=== PATIENT | male | born 1965 | race Caucasian/White ===

== ENCOUNTER 2024-05-13 08:40 | Day surgery (SDC) | payer OTHER ==
[~2024-05-13 08:40] MED LIST: Lactated Ringers 1,000 ML IV SCH
[2024-05-13] MEDS: Lactated Ringers 1,000 ML IV SCH (08:54)
[2024-05-13] MEDS ORDERED: Propofol 200 MG/20 ML SDV ONE (09:16)
[2024-05-13] MEDS ORDERED: fentaNYL 100 MCG/2 ML SDV ONE (09:16)
[2024-05-13] MEDS ORDERED: Sodium Chloride 0.9% 10 ML Syringe FLUSH PRN (09:24)
[2024-05-13 11:47] VITALS: BP 134/75; PULSE 68
== END 2024-05-13 12:01 | disposition home or self-care (01) ==
LOC: VM.SDS 08:40
PROVIDERS: ATTEND Student in an Organized Health Care Education/Training Program
DX: Z12.11 Encounter for screening for malignant neoplasm of colon (principal); D12.5 Benign neoplasm of sigmoid colon; Z86.0100 Personal history of colon polyps, unspecified; Z85.038 Personal history of other malignant neoplasm of large intestine
CPT/HCPCS: 00811; J2704; J3010; J7120